=== PATIENT | female | born 1995 | race African-American/Black ===

== ENCOUNTER 2016-12-10 14:10 | Emergency (ER) | payer OTHER ==
[2016-12-10 14:23] VITALS: BP 111/58; PULSE 117; TEMP 98.4; BMI 16.8
--- NOTE | 2016-12-10 16:03 | PDOC ---
History of Present Illness - General Chief Complaint: Lightheaded Stated Complaint: WEAKNESS,PAIN Time Seen by Provider: 12/10/16 14:25 History Source: Patient Exam Limitations: No Limitations - History of Present Illness Initial Comments: 12/10/16 15:53 Patient is a 20F with no significant medical history here today complaining of weakness and urinary frequency for the past 3-4 days. She also is complaining of mid-abdominal tightness related to an occasionally protruding hernia that she has a video of. On the video, the hernia expands, then easily reduces. She is also complaining of intermittent atypical chest pain. Her LMP was one month ago, with some spotting two weeks ago. She endorses some episodes of nausea, but denies fevers, chills, and vomiting. She denies lower abdominal and pelvic pain. She states that she hasn't lost weight recently. Past History - Past Medical History Allergies/Adverse Reactions: Allergies Allergy/AdvReac Type Severity Reaction Status Date / Time No Known Allergies Allergy Verified 12/10/16 14:19 Home Medications: Ambulatory Orders Cephalexin [Keflex] 500 mg PO BID #5 capsule 12/10/16 Anemia: Yes Asthma: No Cancer: No Cardiac Disorders: No Diabetes: No HTN: No Seizures: No Thyroid Disease: No Other medical history: DENIES. - Immunization History Immunization Up to Date: Yes - Psycho/Social/Smoking Cessation Hx Anxiety: No Suicidal Ideation: No Smoking Status: No Smoking History: Never smoked Have you smoked in the past 12 months: No Number of Cigarettes Smoked Daily: 0 Hx Alcohol Use: No Drug/Substance Use Hx: No Substance Use Type: None Hx Substance Use Treatment: No Review of Systems - Review of Systems Comments:: 12/10/16 16:18 GENERAL/CONSTITUTIONAL: No fever or chills. Positive for weakness HEAD, EYES, EARS, NOSE AND THROAT: No change in vision. No sore throat. CARDIOVASCULAR: Positive for chest pain and shortness of breath RESPIRATORY: No cough, wheezing, or hemoptysis. GASTROINTESTINAL: Positive for nausea. Negative for vomiting, diarrhea or constipation. GENITOURINARY: No dysuria. Positive for increased frequency SKIN: No rash NEUROLOGIC: No headache, loss of consciousness, or change in strength/sensation. ENDOCRINE: No abnormal weight change ALLERGIC/IMMUNOLOGIC: No hives or skin allergy. *Physical Exam - Vital Signs Last Vital Signs Temp Pulse Resp BP Pulse Ox 98.4 F 117 H 18 111/58 100 12/10/16 14:19 12/10/16 14:19 12/10/16 14:19 12/10/16 14:19 12/10/16 14:19 - Physical Exam Comments: 12/10/16 16:21 GENERAL: Awake, alert, and fully oriented, in no acute distress, underweight HEAD: No signs of trauma, normocephalic, atraumatic EYES: PERRLA, EOMI, sclera anicteric, conjunctiva clear, pale conjunctiva ENT: Auricles normal inspection, hearing grossly normal, nares patent, Moist mucosa NECK: Normal ROM, supple, no lymphadenopathy, JVD, or masses LUNGS: No distress, speaks full sentences, clear to auscultation bilaterally HEART: Regular rate and rhythm, normal S1 and S2, no murmurs, rubs or gallops, peripheral pulses normal and equal bilaterally. ABDOMEN: Soft, nontender, normoactive bowel sounds. No guarding, no rebound. 1x1cm periumbilical hernia, reducible, nontender EXTREMITIES: Normal inspection, Normal range of motion, no edema. No clubbing or cyanosis. NEUROLOGICAL: Cranial nerves II through XII grossly intact. Normal speech, no focal sensorimotor deficits SKIN: Warm, Dry, normal turgor, no rashes or lesions noted. ED Treatment Course - LABORATORY CBC & Chemistry Diagram: 12/10/16 15:53 12/10/16 15:53 Medical Decision Making - Medical Decision Making 12/10/16 16:22 20F with no significant medical history here today complaining of weakness for the past several days. Tachycardic, vital signs otherwise stable. Patient is underweight, bmi 16.8. Differential diagnosis includes, but is not limited to: , anemia, electrolyte abnormality, hyperthyroidism, anorexia. Will evaluate with upreg, ua, cbc, cmp, ekg, tsh. 12/10/16 17:23 CBC shows microcytic anemia. UA shows UTI. CMP unremarkable. Upreg neg. TSH pending. 12/10/16 17:59 HR 75, lab findings discussed. Given first dose of antibiotic, prescription sent to pharmacy. EKG, tsh pending. 12/10/16 18:19 TSH normal. 12/10/16 18:30 EKG normal sinus rhythm, normal rate, normal axis. No st elevations or t wave inversions. *DC/Admit/Observation/Transfer Diagnosis at time of Disposition: Urinary tract infection - Discharge Dispostion Disposition: HOME Condition at time of disposition: Good Admit: No - Prescriptions Prescriptions: Cephalexin [Keflex] 500 mg PO BID #5 capsule - Referrals Referrals: Sinan Luong MD [Primary Care Provider] - - Patient Instructions Printed Discharge Instructions: DI for Urinary Tract Infection (UTI)
--- NOTE | 2016-12-10 16:08 | PDOC ---
Attending Attestation - HPI HPI: 12/10/16 17:13 The patient is a 20 year old female with no significant past medical history who presents to the ED for 3-4 days of lightheadedness and generalized weakness. Patient reports for the past 3-4 days she has not been feeling well. She reports frequency and is going to the bathroom more than often despite not drinking a lot of fluids. States she wakes about about 3-4x during the night to use the urinate. Denies hematuria. Denies any weight loss. Denies family medical history. Her LMP was November 17. The patient denies fever, chills, cough, SOB, chest pain, and palpitations. The patient denies abdominal pain, nausea, vomiting, and diarrhea. PCP: Dr. Sinan Luong - Physicial Exam PE: 12/10/16 17:13 GENERAL: Awake, alert, and fully oriented, in no acute distress HEAD: No signs of trauma EYES: PERRLA, EOMI, sclera anicteric, conjunctiva mildly pallor ENT: Auricles normal inspection, hearing grossly normal, nares patent, oropharynx clear without exudates. Moist mucosa NECK: Normal ROM, supple, no lymphadenopathy, JVD, or masses LUNGS: Breath sounds equal, clear to auscultation bilaterally. No wheezes, and no crackles HEART: Tachycardia. Regular rhythm, normal S1 and S2, no murmurs, rubs or gallops ABDOMEN: Soft, nontender, normoactive bowel sounds. No guarding, no rebound. Small umbilical reducible hernia. EXTREMITIES: Normal range of motion, no edema. No clubbing or cyanosis. No cords, erythema, or tenderness NEUROLOGICAL: Cranial nerves II through XII grossly intact. Normal speech, normal gait SKIN: Warm, Dry, normal capillary refill, normal turgor, no rashes or lesions noted. - Medical Decision Making 12/10/16 17:13 Documentation prepared by Tasha Hedrick, acting as medical billing coordinator for Dianna Cleaning DO, MD/. <Tasha Hedrick - Last Filed: 12/10/16 17:40> - Resident Resident Name: Marko Amrbose - ED Attending Attestation I have performed the following: I have examined & evaluated the patient, The case was reviewed & discussed with the resident, I agree w/resident's findings & plan, Exceptions are as noted - Medical Decision Making 12/10/16 16:08 I, Dr. Dianna Cleaning, DO, attest that this document has been prepared under my direction and personally reviewed by me in its entirety. I further attest, that it accurately reflects all work, treatment, procedures and medical decision -making performed by me. <Dianna Cleaning - Last Filed: 12/10/16 18:40> Heart Score/ECG Review - ECG Intrepretation Comment:: 12/10/16 18:40 sinus at 75, nl axis, nl interval, no acute st/t wave findings <Dianna Cleaning - Last Filed: 12/10/16 18:40>
[2016-12-10 16:21] LABS: BASOPHIL 0.6 % (0-2.0); EOSINOPHIL 0.4 % (0-4.5); MCH 21.5 pg (25.7-33.7); MCHC 30.8 g/dl (32.0-36.0); MEAN CELL VOLUME 69.8 fl (80-96); MEAN PLT VOLUME 8.4 fl (7.5-11.1); NEUTROPHILS 72.4 % (42.8-82.8); PLATELET COUNT 376 K/MM3 (134-434); RDW 18.9 % (11.6-15.6); WHITE BLOOD COUNT 6.5 K/mm3 (4.0-10.0)
[2016-12-10 16:24] LABS: URINE APPEARANCE SLCLOUDY; URINE BILIRUBIN NEGATIVE (NEGATIVE); URINE BLOOD NEGATIVE (NEGATIVE); URINE COLOR LTYELLOW; URINE GLUCOSE (UA) NEGATIVE (NEGATIVE); URINE KETONE NEGATIVE (NEGATIVE); URINE NITRITE NEGATIVE (NEGATIVE); URINE PROTEIN NEGATIVE (NEGATIVE)
[2016-12-10 16:25] LABS: URINE LEUK ESTERASE 3+ (NEGATIVE)
[2016-12-10 16:48] LABS: URINE BACTERIA RARE /hpf (NONE SEEN); URINE MUCUS RARE; URINE RBC 2 /hpf (0-3); URINE WBC 9 /hpf (3-5)
[2016-12-10 16:51] LABS: ALBUMIN 3.8 g/dl (3.4-5.0); ANION GAP 7 (8-16); CALCIUM 8.6 mg/dL (8.5-10.1); CO2 27 mmol/L (21-32); CREATININE 0.6 mg/dL (0.55-1.02); GLUCOSE,RANDOM 86 mg/dL (74-106); SGOT/AST 9 U/L (15-37); SGPT/ALT 14 U/L (12-78)
[2016-12-10 16:53] LABS: ALK PHOS 56 U/L (45-117); BILIRUBIN,TOTAL 0.3 mg/dL (0.2-1.0); TOT PROT 7.3 g/dl (6.4-8.2)
[2016-12-10] MEDS ORDERED: SODIUM CHLORIDE 0.9% 1000 ML INFUS.BAG IV ONE (17:08)
[2016-12-10] MEDS ORDERED: CEPHALEXIN MONOHYDRATE 500 MG CAPSULE (UD) PO ONE (17:23)
[2016-12-10] MEDS ORDERED: CEPHALEXIN MONOHYDRATE 250 MG CAPSULE (FP) ONE (17:30)
[2016-12-10 18:14] LABS: HYPOCHROMIA 2+; MACROCYTOSIS RARE; MICROCYTOSIS 1+; OVALOCYTE 1+; PLATELET ESTIMATE ADEQUATE (NORMAL); POIKILOCYTOSIS 1+
--- NOTE | 2016-12-11 12:26 | EKG ---
Test Reason : Blood Pressure : / mmHG Vent. Rate : 075 BPM Atrial Rate : 075 BPM P-R Int : 144 ms QRS Dur : 070 ms QT Int : 368 ms P-R-T Axes : 075 079 066 degrees QTc Int : 410 ms POOR DATA QUALITY, INTERPRETATION MAY BE ADVERSELY AFFECTED NORMAL SINUS RHYTHM NORMAL ECG WHEN COMPARED WITH ECG OF 07-SEP-2013 11:52, NO SIGNIFICANT CHANGE WAS FOUND Confirmed by JAYCEE GOULD, DAVIN ([id number]) on 12/11/2016 12:25:39 PM Referred By: Confirmed By:DAVIN CHAMPION MD
== END 2016-12-10 19:09 | disposition home or self-care (01) ==
LOC: JER 14:10 → SUPCPDRO 14:10 → JER 19:09
DX: N39.0 Urinary tract infection, site not specified (principal)
CPT/HCPCS: 36415; 80053; 81003; 81015; 84443; 84703; 85025; 93005; 93010; 99285-25

== ENCOUNTER 2018-03-06 01:25 | Inpatient (IN) | payer OTHER ==
[2018-03-06] MEDS: DEXTROSE 5%-LACTATED RINGERS 1,000 ML IV SCH (02:00)
[2018-03-06] MEDS ORDERED: PROMETHAZINE HCL 25 MG/1 ML VIAL IVPUSH ONE (02:13)
[2018-03-06] MEDS ORDERED: BUTORPHANOL TARTRATE 1 MG/ML VIAL IVPB ONE (02:13)
[2018-03-06] MEDS ORDERED: PROMETHAZINE HCL 25 MG/1 ML VIAL ONE (02:16)
[2018-03-06] MEDS ORDERED: BUTORPHANOL TARTRATE 1 MG/ML VIAL ONE ×2 (02:16→02:31)
--- NOTE | 2018-03-06 02:20 | HP ---
Past Medical History - Admission Chief Complaint: Labor pain History of Present Illness: 22 yo @ 38 weeks gestation, presents c/o labor pain. She denies any vaginal bleeding nor ROM. She's a Patient of [facility]. History Source: Patient Limitations to Obtaining History: No Limitations - Past Medical History ...: 5 ...Para: 2 ...EDC by [facility]: 03/15/18 - Past Surgical History Past Surgical History: Yes: None Hx Myomectomy: No Hx Transabdominal Cerclage: No - Smoking History Smoking history: Never smoked Have you smoked in the past 12 months: No Aproximately how many cigarettes per day: 0 - Alcohol/Substance Use Hx Alcohol Use: No - Social History Usual Living Arrangement: Yes: With Parent History of Recent Travel: No Home Medications - Allergies Allergies/Adverse Reactions: Allergies Allergy/AdvReac Type Severity Reaction Status Date / Time No Known Allergies Allergy Verified 12/10/16 14:19 - Home Medications Home Medications: Ambulatory Orders Cephalexin [Keflex] 500 mg PO BID #5 capsule 12/10/16 Family Disease History - Family Disease History Family History: Unremarkable Review of Systems - Review of Systems Constitutional: reports: No Symptoms Eyes: reports: No Symptoms HENT: reports: No Symptoms Neck: reports: No Symptoms Cardiovascular: reports: No Symptoms Respiratory: reports: No Symptoms Gastrointestinal: reports: No Symptoms Genitourinary: reports: Pain Breasts: reports: No Symptoms Reported Neurological: reports: No Symptoms Endocrine: reports: No Symptoms Hematology/Lymphatic: reports: No Symptoms Psychiatric: reports: No Symptoms Pain Intensity: 7 Physical Exam - Maternity Constitutional: Yes: Well Nourished Eyes: Yes: Conjunctiva Clear HENT: Yes: Atraumatic Neck: Yes: Supple Cardiovascular: Yes: Regular Rate and Rhythm Lungs: Clear to auscultation - Abdominal Exam/OB Number of Fetuses: Single Presentation: Vertex - Vaginal Exam/OB Vaginal Bleediing: No Dilatation (cm): 5 Effacement (%): 100 Presentation: Vertex/Position Station: -2 - Physical Exam ...Motor Strength: WNL Psychiatric: Yes: Alert, Oriented Problem List - Problems (1) Active labor at term Code(s): [id number] - Assessment/Plan Active labor Admit to L&D Analgesia as needed Anticipate
[2018-03-06 02:22] LABS: BASO % 0.2 % (0-2.0); EOS % 0.1 % (0-4.5); HEMATOCRIT 29.3 % (32.4-45.2); HEMOGLOBIN 9.5 GM/dL (10.7-15.3); LYMPH % 18.8 % (8-40); MCH 21.9 pg (25.7-33.7); MCHC 32.3 g/dl (32.0-36.0); MEAN CELL VOLUME 67.8 fl (80-96); MEAN PLT VOLUME 9.3 fl (7.5-11.1); MONO % 5.5 % (3.8-10.2); NEUT % 75.4 % (42.8-82.8); PLATELET COUNT 271 K/MM3 (134-434); RBC 4.33 M/mm3 (3.60-5.2); RDW 19.3 % (11.6-15.6); WHITE BLOOD COUNT 9.8 K/mm3 (4.0-10.0)
[2018-03-06 02:37] LABS: INR 0.92 (0.83-1.09); PROTHROMBIN TIME (PATIENT) 10.9 SEC (9.7-13.0)
[2018-03-06 02:39] LABS: ACTIVATED PTT 28.6 SECONDS (25.2-36.5)
[2018-03-06 02:43] LABS: ANION GAP 8 MMOL/L (8-16); BLOOD UREA NITROGEN 4 mg/dL (7-18); CALCIUM 7.9 mg/dL (8.5-10.1); CHLORIDE 105 mmol/L (98-107); CO2 24 mmol/L (21-32); CREATININE 0.5 mg/dL (0.55-1.3); GLUCOSE,RANDOM 72 mg/dL (74-106); SODIUM 137 mmol/L (136-145)
[2018-03-06] MEDS ORDERED: OXYTOCIN 20 UNITS in 0.9% NS 20 UNIT/1,000 ML INFUS.BAG IV ONE ×2 (03:01→04:17)
[2018-03-06] MEDS: OXYTOCIN 20 UNITS in 0.9% NS 20 UNIT/1,000 ML INFUS.BAG IV SCH (03:10)
[2018-03-06] MEDS ORDERED: WITCH HAZEL 50% (TUCKS) 40 PAD/JAR PAD TP PRN (03:16)
[2018-03-06] MEDS ORDERED: BENZOCAINE 28 GM HEMORRHOIDAL OINTMENT TP PRN (03:16)
[2018-03-06] MEDS ORDERED: METHYLERGONOVINE MALEATE 0.2 MG/1 ML AMP IM PRN (03:16)
[2018-03-06] MEDS ORDERED: BENZOCAINE 20% 57 GM BOTTLE TP PRN (03:16)
[2018-03-06] MEDS ORDERED: BISACODYL 10 MG SUPP.RECT RC PRN (03:16)
--- NOTE | 2018-03-06 03:19 | PN ---
Delivery - Delivery Vaginal Delivery: Spontaneous Episiotomy/Laceration: 1st degree EBL (cc): 300 Remarks - Remarks Remarks: Normal spontaneous vaginal delivery of a live infant boy over first degree laceration. Nose / Oropharynx suctioned @ perineum. Cord clamped and cut. Placenta expelled spontaneously intact. Baby handed to nurse. Laceration repaired with 2.0 Chromic.
[2018-03-06 03:45] VITALS: BMI 20.7
[2018-03-06 05:21] LABS: ANISOCYTOSIS 1+; PLATELET ESTIMATE ADEQUATE
[2018-03-06] MEDS: IBUPROFEN 600 MG TABLET (FP) PO PRN ×3 (06:38→19:54)
[2018-03-06] MEDS: ACETAMINOPHEN 325 MG TABLET (FP) PO PRN ×3 (06:40→19:54)
[2018-03-06] MEDS ORDERED: IBUPROFEN 600 MG TABLET (FP) PO ONE ×2 (06:42→10:32)
[2018-03-06] MEDS ORDERED: ACETAMINOPHEN 325 MG TABLET (FP) ONE ×2 (06:42→10:32)
[2018-03-06] MEDS: FERROUS SO4 325 MG TABLET (FP) PO SCH ×2 (09:59→21:38)
[2018-03-06] MEDS: PRENATAL VITAMINS W/ FOLIC ACID TABLET (FP) PO SCH (09:59)
[2018-03-06] MEDS ORDERED: TUBERCULIN PPD 5 TU/0.1ML SYRINGE (IN PATIENT USE ONLY) ID ONE (10:00)
[2018-03-07] MEDS: ACETAMINOPHEN 325 MG TABLET (FP) PO PRN ×3 (01:24→18:00)
[2018-03-07] MEDS: IBUPROFEN 600 MG TABLET (FP) PO PRN ×3 (01:24→17:59)
[2018-03-07] MEDS: DEXTROSE 5%-LACTATED RINGERS 1,000 ML IV SCH (05:04)
[2018-03-07] MEDS: OXYTOCIN 20 UNITS in 0.9% NS 20 UNIT/1,000 ML INFUS.BAG IV SCH (05:04)
[2018-03-07 08:31] LABS: BASO % 0.2 % (0-2.0); HEMATOCRIT 24.5 % (32.4-45.2); HEMOGLOBIN 7.5 GM/dL (10.7-15.3); MCH 21.1 pg (25.7-33.7); MCHC 30.5 g/dl (32.0-36.0); MEAN CELL VOLUME 69.3 fl (80-96); MEAN PLT VOLUME 9.6 fl (7.5-11.1); MONO % 5.7 % (3.8-10.2); NEUT % 73.1 % (42.8-82.8); PLATELET COUNT 231 K/MM3 (134-434); RBC 3.54 M/mm3 (3.60-5.2); RDW 19.4 % (11.6-15.6); WHITE BLOOD COUNT 10.6 K/mm3 (4.0-10.0)
[2018-03-07] MEDS: PRENATAL VITAMINS W/ FOLIC ACID TABLET (FP) PO SCH (09:53)
[2018-03-07] MEDS: FERROUS SO4 325 MG TABLET (FP) PO SCH ×2 (09:53→21:14)
--- NOTE | 2018-03-07 14:08 | PN ---
Post Progress Note - Subjective Subjective: 22 yo Para 3 status post , seen and evaluated. Doing well. Post Day: 1 Type of Delivery: Vital Signs: Vital Signs Temperature 98.6 F 03/07/18 09:53 Pulse Rate 87 03/07/18 09:53 Respiratory Rate 20 03/07/18 09:53 Blood Pressure 110/65 03/07/18 09:53 O2 Sat by Pulse Oximetry (%) 100 03/06/18 15:27 Breast Exam: Yes: Soft Uterus: Yes: Fundus Firm Abdomen/GI: Yes: Abdomen soft, Tolerating PO Lochia: Yes: Rubra Lochia, amount: Moderate Extremities: Yes: Calves non-tender Perineum: Yes: Intact Activity: Ambulating - Labs Labs: CBC WBC 10.6 K/mm3 (4.0-10.0) H 03/07/18 07:30 RBC 3.54 M/mm3 (3.60-5.2) L 03/07/18 07:30 Hgb 7.5 GM/dL (10.7-15.3) L 03/07/18 07:30 Hct 24.5 % (32.4-45.2) L D 03/07/18 07:30 MCV 69.3 fl (80-96) L 03/07/18 07:30 MCH 21.1 pg (25.7-33.7) L 03/07/18 07:30 MCHC 30.5 g/dl (32.0-36.0) L 03/07/18 07:30 RDW 19.4 % (11.6-15.6) H 03/07/18 07:30 Plt Count 231 K/MM3 (134-434) 03/07/18 07:30 MPV 9.6 fl (7.5-11.1) 03/07/18 07:30 Absolute Neuts (auto) 7.7 K/mm3 (1.5-8.0) 03/07/18 07:30 Neutrophils % 73.1 % (42.8-82.8) 03/07/18 07:30 Lymphocytes % 20.0 % (8-40) 03/07/18 07:30 Monocytes % 5.7 % (3.8-10.2) 03/07/18 07:30 Eosinophils % 1.0 % (0-4.5) D 03/07/18 07:30 Basophils % 0.2 % (0-2.0) 03/07/18 07:30 Nucleated RBC % 0 % (0-0) 03/07/18 07:30 Hypochromia 2+ 03/06/18 01:20 Platelet Estimate Adequate 03/06/18 01:20 Platelet Comment Large platelets 03/06/18 01:20 Polychromasia 1+ 03/06/18 01:20 Anisocytosis 1+ 03/06/18 01:20 Microcytosis 2+ 03/06/18 01:20 Problem List - Problems (1) Active labor at term Code(s): [id number] - (2) Status post normal vaginal delivery Code(s): ART6086 - Assessment/Plan Status post vaginal delivery Stable Continue routine care
[2018-03-07] MEDS ORDERED: SENNOSIDES/DOCUSATE COMBO (SENNA PLUS) TABLET (UD) PO PRN (22:00)
[2018-03-08] MEDS: IBUPROFEN 600 MG TABLET (FP) PO PRN (03:24)
[2018-03-08] MEDS: ACETAMINOPHEN 325 MG TABLET (FP) PO PRN (03:25)
[2018-03-08 08:45] VITALS: BP 113/70; PULSE 87; TEMP 98.6
[2018-03-08] MEDS: PRENATAL VITAMINS W/ FOLIC ACID TABLET (FP) PO SCH (10:29)
[2018-03-08] MEDS: FERROUS SO4 325 MG TABLET (FP) PO SCH (10:29)
--- NOTE | 2018-03-08 10:30 | DS ---
Physical Exam-GIFT CONSULTANT Vital Signs: Vital Signs Temperature 98.6 F 03/08/18 08:41 Pulse Rate 87 03/08/18 08:41 Respiratory Rate 20 03/08/18 08:41 Blood Pressure 113/70 03/08/18 08:41 O2 Sat by Pulse Oximetry (%) 100 03/06/18 15:27 Constitutional: Yes: Well Nourished, No Distress Neck: Yes: WNL Cardiovascular: Yes: WNL Respiratory: Yes: WNL, Regular, CTA Bilaterally Gastrointestinal: Yes: WNL, Normal Bowel Sounds, Soft ....Post : Yes: Uterus firm, Uterus non-tender Breast(s): Yes: WNL Musculoskeletal: Yes: WNL Extremities: Yes: WNL Edema: No Labs: CBC, BMP 03/07/18 07:30 03/06/18 01:20 Delivery - Delivery Vaginal Delivery: Spontaneous Type of Anesthesia: None Episiotomy/Laceration: 1st degree EBL (cc): 300 Delivery, Single - Stages of Labor Date 1st Stage Initiatied: 03/05/18 Time 1st Stage Initiated: 23:00 Date 2nd Stage Initiated: 03/06/18 Time 2nd Stage Initiated: 02:00 Date of Delivery: 03/06/18 Time of Delivery: 03:04 Time Placenta Delivered: 03:10 Placenta: Yes: Spontaneous - Condition of Infant Arborer/Photography Manager Present: No Gender: Male Weight: 5 lb 6 oz Position: Left, OA Total Hours ROM (Hrs/Mins): 1HOUR/4 MINUTES - 1 Minute Total Score: 9 - [place] Feeding Plan Initial Plan: Elected not to breastfeed exclusively throughout hospitalization Discharge Summary Reason For Visit: LABOR Current Active Problems Active labor at term (Acute) Status post normal vaginal delivery (Acute) Procedures: Principal: Normal vaginal delivery Condition: Good - Instructions Diet, Activity, Other Instructions: Physical activity Resume your normal everyday activity as tolerated no heavy lifting or exercise until seen by your surgeon. You may walk unlimited el of and climb stairs. You may resume driving the car when you feel safe and comfortable behind the wheel. No sexual activity as instructed. Wound care If you have a bandage, leave it on, and keep dry for 48-72 hours. After that time discard the outer bandage. If they are tapes on the skin under the out of bandage leave them in place. They will peel off in the next 7 to 10 days. Do Not Peel them off. You may shower the day after surgery. If there are tapes present on the skin, you may shower over them. Diet There are no dietary restrictions. Eat healthy, high-fiber foods. Drink 6 to 8 glasses of liquid each day. This will assist in keeping your bowels are regular. Pain management You may take Tylenol or acetaminophen or Ibuprofen (for example, Motrin, Advil etc.) from my pain prescription medication is ordered should be taken as prescribed for moderate to severe pain. Call MD for any of the following: Severe pain not relieved by medication Fever of 101 or higher Excessive bleeding or drainage on dressing Inability to urinate Disposition: HOME - Home Medications Comprehensive Discharge Medication List: Ambulatory Orders Ibuprofen [Motrin -] 600 mg PO QID #28 tablet 03/08/18
== END 2018-03-08 14:00 | disposition home or self-care (01) | DRG 807 ==
LOC: JLDR 01:25 → J3W 14:52
PROVIDERS: ADMIT Obstetrics & Gynecology; ATTEND Obstetrics & Gynecology
PROC: 10E0XZZ Delivery of Products of Conception, External Approach (ICD-10-PCS; principal; 2018-03-06)
PROC: 0W8NXZZ Division of Female Perineum, External Approach (ICD-10-PCS; 2018-03-06)
DX: O70.0 First degree perineal laceration during delivery (principal); Z37.0 Single live birth; Z3A.38 38 weeks gestation of pregnancy
CPT/HCPCS: 36415; 59409; 80048; 85025; 85610; 85730; 86593; 86850; 86900; 86901

== ENCOUNTER 2018-09-29 17:30 | Emergency (ER) | payer OTHER ==
--- NOTE | 2018-09-29 17:43 | PDOC ---
Rapid Medical Evaluation Time Seen by Provider: 09/29/18 17:41 Medical Evaluation: Allergies Allergy/AdvReac Type Severity Reaction Status Date / Time No Known Allergies Allergy Verified 12/10/16 14:19 09/29/18 17:41 HPI: painful area on face PE: ambulates, no gross deficits; boil on right jaw line ORDERS: nothing Discharge Disposition - Diagnosis Abscess - Referrals - Patient Instructions - Post Discharge Activity
[2018-09-29 17:45] VITALS: BP 100/60; PULSE 92; TEMP 98.2; BMI 17.7
--- NOTE | 2018-09-29 19:26 | PDOC ---
History of Present Illness - General Chief Complaint: Abscess Boil Stated Complaint: ABSESS Time Seen by Provider: 09/29/18 17:41 History Source: Patient Exam Limitations: Clinical Condition - History of Present Illness Initial Comments: 09/29/18 19:28 Patient with no significant past medical history present with complaint of abscess to right side of chin. Report she popped abscess multiple times and it refills. Patient has not seen anybody about abscess. Denies fever, chills or redness to area. Denies any other symptoms Timing/Duration: reports: other (3 months) Past History - Past Medical History Allergies/Adverse Reactions: Allergies Allergy/AdvReac Type Severity Reaction Status Date / Time No Known Allergies Allergy Verified 09/29/18 17:43 Home Medications: Ambulatory Orders Ibuprofen [Motrin -] 600 mg PO QID #28 tablet 03/08/18 Clindamycin [Cleocin -] 300 mg PO BID 7 Days #14 capsule 09/29/18 Mupirocin Ointment [Bactroban 2% Ointment -] 1 applic TP BID #1 tube 09/29/18 Anemia: Yes Asthma: No Cancer: No Cardiac Disorders: No Diabetes: No HTN: No Seizures: No Thyroid Disease: No - Immunization History Immunization Up to Date: Yes - Suicide/Smoking/Psychosocial Hx Smoking Status: No Smoking History: Never smoked Have you smoked in the past 12 months: No Number of Cigarettes Smoked Daily: 0 Information on smoking cessation initiated: No Hx Alcohol Use: No Drug/Substance Use Hx: No Substance Use Type: None Hx Substance Use Treatment: No Review of Systems - Review of Systems Able to Perform ROS?: Yes Is the patient limited [place] proficient: No Constitutional: No: Fever, Weakness HEENTM: Yes: Symptoms Reported, See HPI, Other (abscess to right side of chin). No: Eye Pain, Blurred Vision, Tearing, Recent change in vision, Double Vision , Cataracts, Ear Pain, Ocular Prothesis, Ear Discharge, Nose Pain, Nose Congestion, Tinnitus, Nose Bleeding, Hearing Loss, Throat Pain, Throat Swelling , Mouth Pain, Dental Problems, Difficulty Swallowing, Mouth Swelling Respiratory: No: Symptoms reported Cardiac (ROS): No: Symptoms Reported ABD/GI: No: Nausea, Vomiting Musculoskeletal: Yes: Symptoms Reported, See HPI, Muscle Pain (right chin) Integumentary: Yes: Symptoms Reported, See HPI, Lumps (right side of chin). No : Erythema All Other Systems: Reviewed and Negative *Physical Exam - Vital Signs Last Vital Signs Temp Pulse Resp BP Pulse Ox 98.2 F 92 H 17 100/60 100 09/29/18 17:43 09/29/18 17:43 09/29/18 17:43 09/29/18 17:43 09/29/18 17:43 - Physical Exam Comments: 09/29/18 19:37 GENERAL: Well developed, well nourished. Awake and alert. No acute distress. HEENT: Normocephalic, atraumatic. PERRLA, EOMI. No conjunctival pallor. Sclera are non-icteric. Moist mucous membranes. Oropharynx is clear. NECK: Supple. Full ROM. CARDIOVASCULAR: Regular rate and rhythm. No murmurs, rubs, or gallops. Distal pulses are 2+ and symmetric. PULMONARY: No evidence of respiratory distress. MUSCULOSKELETAL Normal range of motion at all joints. SKIN: Warm and dry. Normal capillary refill. 2 cm area of hard induration with 1 cm fluctuant in the middle of induration. No skin erythema. No drainage from site. NEUROLOGICAL: Alert, awake, appropriate. Gait is normal without ataxia. PSYCHIATRIC: Cooperative. Good eye contact. Appropriate mood General Appearance: Yes: Nourished, Appropriately Dressed. No: Apparent Distress Medical Decision Making - Medical Decision Making 09/29/18 19:34 Patient with no significant past medical history present with complaint of abscess to right side of chin. Report she popped abscess multiple times and it refills. Patient has not seen anybody about abscess. Denies fever, chills or redness to area. Denies any other symptoms Exam significant for 2 cm hard induration with 1 cm area of fluctuating to right it of mandible. No erythema to skin Abscess not ready for I&D area Patient with discharge home on clindamycin by mouth antibiotics and topical Bactroban with advised to do hot compresses to abscess with dermatology follow- up *DC/Admit/Observation/Transfer Diagnosis at time of Disposition: Abscess - Discharge Dispostion Disposition: HOME Condition at time of disposition: Stable Decision to Admit order: No - Prescriptions Prescriptions: Clindamycin [Cleocin -] 300 mg PO BID 7 Days #14 capsule Mupirocin Ointment [Bactroban 2% Ointment -] 1 applic TP BID #1 tube - Referrals Referrals: Sinan Luong MD [Primary Care Provider] - Kisha Marie MD [Staff Physician] - - Patient Instructions Printed Discharge Instructions: DI for Skin Abscess Additional Instructions: Take medications as prescribed. Apply hot compresses to abscess area 2-3 times a day for 5-10 minutes as needed for swelling. Follow-up with referred dermatology or PCP if no improvement in 4 days or come back for drainage if unable to follow-up with dermatology or PCP - Post Discharge Activity
== END 2018-09-29 19:41 | disposition home or self-care (01) ==
LOC: JERFT 17:30
DX: L02.01 Cutaneous abscess of face (principal)
CPT/HCPCS: 99281-25

== ENCOUNTER 2019-03-29 21:39 | Emergency (ER) | payer OTHER ==
[2019-03-29 21:45] VITALS: BMI 18.1
[2019-03-29] MEDS ORDERED: ACETAMINOPHEN 325 MG TABLET (FP) PO ONE (22:26)
[2019-03-29] MEDS ORDERED: ACETAMINOPHEN 325 MG TABLET (FP) ONE (22:34)
[2019-03-29 22:38] LABS: BASO % 0.2 % (0-2.0); EOS % 0.1 % (0-4.5); HEMATOCRIT 32.9 % (32.4-45.2); HEMOGLOBIN 10.4 GM/dL (10.7-15.3); LYMPH % 3.1 % (8-40); MCH 23.9 pg (25.7-33.7); MCHC 31.6 g/dl (32.0-36.0); MEAN CELL VOLUME 75.6 fl (80-96); MEAN PLT VOLUME 8.7 fl (7.5-11.1); MONO % 7.1 % (3.8-10.2); NEUT % 89.5 % (42.8-82.8); PLATELET COUNT 363 K/MM3 (134-434); RBC 4.35 M/mm3 (3.60-5.2); RDW 18.9 % (11.6-15.6); WHITE BLOOD COUNT 17.3 K/mm3 (4.0-10.0)
[2019-03-29 22:59] LABS: ALBUMIN 3.9 g/dl (3.4-5.0); BILIRUBIN,TOTAL 0.5 mg/dL (0.2-1); BLOOD UREA NITROGEN 7.8 mg/dL (7-18); CALCIUM 8.5 mg/dL (8.5-10.1); CREATININE 0.7 mg/dL (0.55-1.3); POTASSIUM 3.7 mmol/L (3.5-5.1); TOT PROT 7.6 g/dl (6.4-8.2)
[2019-03-29] MEDS ORDERED: CLINDAMYCIN 900 MG PREMIX IVPB 900 MG/50 ML BAG IVPB ONE ×2 (23:11→23:20)
[2019-03-29 23:37] LABS: EPI CELLS 1.7 /HPF (0-5/HPF); HYALINE CASTS 1 /lpf (0-8); PH,URINE 6.5 (5.0-8.0); URINE APPEARANCE CLEAR; URINE BACTERIA 64.2 /hpf (NEGATIVE); URINE BILIRUBIN NEGATIVE (NEGATIVE); URINE COLOR YELLOW; URINE GLUCOSE (UA) NEGATIVE (NEGATIVE); URINE KETONE NEGATIVE (NEGATIVE); URINE LEUK ESTERASE 1+ (NEGATIVE); URINE NITRITE NEGATIVE (NEGATIVE); URINE PROTEIN NEGATIVE (NEGATIVE); URINE RBC 0 /hpf (0-4); URINE WBC 10 /hpf (0-5)
[2019-03-30] MEDS ORDERED: SODIUM CHLORIDE 1,000 ML IV STA (00:11)
--- NOTE | 2019-03-30 00:37 | PDOC ---
Documentation entered by Ekta Corea SCRIBE, acting as scribe for Delisa Zhu MD. Delisa Zhu MD: This documentation has been prepared by the nohemyibe, Ekta Corea SCRIBE, under my direction and personally reviewed by me in its entirety. I confirm that the documentation accurately reflects all work, treatment, procedures, and medical decision making performed by me. 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 Patient states that she has body aches, ?URI, and flu like symptoms. Patient states that she has not taken tylenol or motrin to help with her symptoms. As per patient, 9 months ago she started having recurrent abscess on her face but did not see anyone until 6 months ago (09/29/18 at ED). Patient has never followed up with dermatology since because she was too busy. Patient states it never clears up, and that it comes and goes. Patient adds for the last x2 weeks the left side of her face and the anterior of her tongue feels numb. No nausea, vomiting, or diarrhea. No chest pain or shortness of breath. The patient denies dental pain or problem handling her saliva. Allergies: NKA PCP: Dr. Pankaj Luong Past History - Past Medical History Allergies/Adverse Reactions: Allergies Allergy/AdvReac Type Severity Reaction Status Date / Time No Known Allergies Allergy Verified 09/29/18 17:43 Home Medications: Ambulatory Orders Ibuprofen [Motrin -] 600 mg PO QID #28 tablet 03/08/18 Clindamycin [Cleocin -] 300 mg PO BID 7 Days #14 capsule 09/29/18 Mupirocin Ointment [Bactroban 2% Ointment -] 1 applic TP BID #1 tube 09/29/18 Anemia: Yes Asthma: No Cancer: No Cardiac Disorders: No COPD: No Diabetes: No HTN: No Seizures: No Thyroid Disease: No - Immunization History Immunization Up to Date: Yes - Psycho Social/Smoking Cessation Hx Smoking Status: No Smoking History: Never smoked Have you smoked in the past 12 months: No Number of Cigarettes Smoked Daily: 0 Hx Alcohol Use: No Drug/Substance Use Hx: No Substance Use Type: None Hx Substance Use Treatment: No Review of Systems - Review of Systems Able to Perform ROS?: Yes Comments:: 03/29/19 22:57 CONSTITUTIONAL: +fever, body aches, flu like symptoms Absent: chills, diaphoresis, generalized weakness, malaise, loss of appetite HEENT: Absent: difficulty swallowing, dental pain, throat pain, throat swelling, ear pain, eye pain, visual Changes CARDIOVASCULAR: Absent: chest pain, syncope, palpitations, irregular heart rate, lightheadedness , peripheral edema RESPIRATORY: Absent: cough, shortness of breath, dyspnea with exertion, orthopnea, wheezing, stridor, hemoptysis GASTROINTESTINAL: Absent: No abdominal pain, abdominal distension, nausea, vomiting, diarrhea, constipation, melena, hematochezia GENITOURINARY: Absent: dysuria, frequency, urgency, hesitancy, hematuria, flank pain, genital pain MUSCULOSKELETAL: +myalgia Absent: arthralgia, joint swelling SKIN: +abscess on right side of face Absent: rash, itching, pallor HEMATOLOGIC/IMMUNOLOGIC: +persistent right facial abscess Absent: easy bleeding, easy bruising, lymphadenopathy, ENDOCRINE: Absent: unexplained weight gain, unexplained weight loss, heat intolerance, cold intolerance NEUROLOGIC: Absent: headache, focal weakness or paresthesias, dizziness, unsteady gait, seizure, mental status changes, bladder or bowel incontinence PSYCHIATRIC: Absent: anxiety, depression, suicidal or homicidal ideation, hallucinations. *Physical Exam - Vital Signs Last Vital Signs Temp Pulse Resp BP Pulse Ox 100.8 F H 123 H 19 113/71 98 03/29/19 21:41 03/29/19 21:41 03/29/19 21:41 03/29/19 21:41 03/29/19 21:41 - Physical Exam 03/29/19 22:59 GENERAL: Well developed, well nourished. Awake and alert. No acute distress. HEENT: +jawline 1 cm abcess Normocephalic, atraumatic. PERRLA, EOMI. No conjunctival pallor. Sclera are non- icteric. Moist mucous membranes. Oropharynx is clear. ORAL: +No tongue biting, no erythema, no streaking. No sublingual fullness. No buccal vestibule fullness or swelling, uvula is midline, no kissing tonsils, no exudates. No grossly carious teeth, no submandibular sublingual swelling. NECK: Supple. Full ROM. No JVD. Carotid pulses 2+ and symmetric, without bruits. No thyromegaly. No lymphadenopathy. CARDIOVASCULAR: +Slight tachycardic. Regular rhythm. No murmurs, rubs, or gallops. Distal pulses are 2+ and symmetric. PULMONARY: No evidence of respiratory distress. Lungs clear to auscultation bilaterally. No wheezing, rales or rhonchi. ABDOMINAL: Soft. Non-tender. Non-distended. No rebound or guarding. No organomegaly. Normoactive bowel sounds. MUSCULOSKELETAL Normal range of motion at all joints. No bony deformities or tenderness. No CVA tenderness. EXTREMITIES: No cyanosis. No clubbing. No edema. No calf tenderness. SKIN: Warm and dry. Normal capillary refill. No rashes. No jaundice. NEUROLOGICAL: +No facial droop, no slurred speech, no neuropathies. Alert, awake, appropriate. Cranial nerves 2-12 intact. No deficits to light touch and temperature in face, upper extremities and lower extremities. No motor deficits in the in face, upper extremities and lower extremities. Normoreflexic in the upper and lower extremities. Normal speech. Toes are down- going bilaterally. Gait is normal without ataxia. PSYCHIATRIC: Cooperative. Good eye contact. Appropriate mood and affect. ED Treatment Course - LABORATORY CBC & Chemistry Diagram: 03/29/19 22:28 03/29/19 22:28 - ADDITIONAL ORDERS Additional order review: Laboratory Results 03/29/19 03/29/19 03/29/19 23:26 22:30 22:28 Sodium 139 Potassium 3.7 Chloride 109 H Carbon Dioxide 22 Anion Gap 8 BUN 7.8 Creatinine 0.7 Est GFR (CKD-EPI)AfAm 139.57 Est GFR (CKD-EPI)NonAf 120.42 Random Glucose 90 Calcium 8.5 Total Bilirubin 0.5 AST 14 L ALT 14 Alkaline Phosphatase 65 Total Protein 7.6 Albumin 3.9 Serum , Qual Negative Urine Color Yellow Urine Appearance Clear Urine pH 6.5 Ur Specific Barnard 1.005 L Urine Protein Negative Urine Glucose (UA) Negative Urine Ketones Negative Urine Blood Negative Urine Nitrite Negative Urine Bilirubin Negative Urine Urobilinogen 1.0 Ur Leukocyte Esterase 1+ H Urine WBC (Auto) 10 Urine RBC (Auto) 0 Urine Casts (Auto) 1 U Epithel Cells (Auto) 1.7 Urine Bacteria (Auto) 64.2 03/29/19 22:28 RBC 4.35 MCV 75.6 L MCHC 31.6 L RDW 18.9 H MPV 8.7 Neutrophils % 89.5 H D Lymphocytes % 3.1 L D Monocytes % 7.1 Eosinophils % 0.1 D Basophils % 0.2 - RADIOLOGY Radiology Studies Ordered: Category Date Time Status HEAD CT WITHOUT CONTRAST [CT] Stat CT Scan 03/29/19 23:35 Taken - Medications Given in the ED: ED Medications Discontinued Medications Generic Name Dose Route Start Last Admin Trade Name Freq PRN Reason Stop Dose Admin Acetaminophen 650 mg 03/29/19 22:26 03/29/19 22:36 Tylenol - PO 03/29/19 22:27 650 mg ONCE ONE Administration Medical Decision Making - Medical Decision Making 03/30/19 00:33 23-year-old female presents with an intermittent chronic abscess to the right side of her jaw she noticed it in June and first came to the ER and September 29 of this year and was placed on antibiotics and did not follow-up with the standard machine stitcher or her primary care provider She comes in because she feels febrile now and has body aches and is aware that she again has swelling on the bridge of her jaw on the right side of her face. 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 and according to the family this tooth may have been endodontically treated in the past Impression she could have a dental abscess at the periapical roots pf her rt mandibular molar with a fistula that extends out to her face Patient will be placed on clindamycin and she will be referred to both the standard machine stitcher and the dentist It was emphasized that is very important for her to follow-up since she has had this recurrent abscess for at least [address] is negative Discharge - Discharge Information Problems reviewed: Yes Clinical Impression/Diagnosis: Abscess Fever Qualifiers: Fever type: due to other condition Qualified Code(s): R50.81 - Fever presenting with conditions classified elsewhere Condition: Stable Disposition: HOME - Admission No - Follow up/Referral Referrals: Pankaj Luong MD [Primary Care Provider] - Kisha Marie MD [Staff Physician] - - Patient Discharge Instructions Patient Printed Discharge Instructions: DI for Skin Abscess Additional Instructions: It is very important to case picker your antibiotics at your pharmacy and take the medication as prescribed Please make an appointment with the dentist and the standard machine stitcher for further evaluation Return for any worsening symptoms - Post Discharge Activity
[2019-03-30 01:35] VITALS: BP 108/79; PULSE 70; TEMP 98.1
== END 2019-03-30 01:13 | disposition home or self-care (01) ==
LOC: JER 21:39
PROC: 3E0337Z Introduction of Electrolytic and Water Balance Substance into Peripheral Vein, Percutaneous Approach (ICD-10-PCS; principal; 2019-03-29)
PROC: 3E03329 Introduction of Other Anti-infective into Peripheral Vein, Percutaneous Approach (ICD-10-PCS; 2019-03-29)
DX: L02.01 Cutaneous abscess of face (principal)
CPT/HCPCS: 36415; 70450-TC; 80053; 81003; 84703; 85025; 87804; 99282-25; J7030

== ENCOUNTER 2020-04-11 03:02 | Emergency (ER) | payer OTHER | END 2020-04-11 04:22 | disposition short-term general hospital (02) | LOC: JER 03:02 | DX: L02.01 Cutaneous abscess of face (principal) | CPT/HCPCS: 99285-25 ==

== ENCOUNTER 2020-06-23 14:07 | Emergency (ER) | payer OTHER ==
[2020-06-23 14:13] VITALS: BMI 17.7
[2020-06-23 15:51] LABS: BASO % 0.6 % (0-2.0); EOS % 0.5 % (0-4.5); HEMATOCRIT 34.6 % (32.4-45.2); HEMOGLOBIN 10.9 GM/dL (10.7-15.3); LYMPH % 13.3 % (8-40); MCH 24.8 pg (25.7-33.7); MCHC 31.6 g/dl (32.0-36.0); MEAN CELL VOLUME 78.6 fl (80-96); MEAN PLT VOLUME 9.2 fl (7.5-11.1); MONO % 8.3 % (3.8-10.2); NEUT % 77.3 % (42.8-82.8); PLATELET COUNT 481 K/MM3 (134-434); RBC 4.41 M/mm3 (3.60-5.2); RDW 18.2 % (11.6-15.6); WHITE BLOOD COUNT 9.3 K/mm3 (4.0-10.0)
[2020-06-23 16:25] LABS: EPI CELLS 13 /uL (0-25.1); HYALINE CASTS 2 /uL (0-3.1); PH,URINE 6.5 (5.0-8.0); URINE APPEARANCE CLEAR; URINE BACTERIA 128 /uL (0-1359); URINE BILIRUBIN NEGATIVE (NEGATIVE); URINE COLOR YELLOW; URINE GLUCOSE (UA) NEGATIVE (NEGATIVE); URINE KETONE TRACE (NEGATIVE); URINE LEUK ESTERASE NEGATIVE (NEGATIVE); URINE NITRITE NEGATIVE (NEGATIVE); URINE PROTEIN NEGATIVE (NEGATIVE); URINE RBC 27 /uL (0-23.9); URINE WBC 8 /uL (0-25.8)
[2020-06-23 17:02] LABS: CHLORIDE 107 mmol/L (98-107); SODIUM 137 mmol/L (136-145)
[2020-06-23 17:03] LABS: CALCIUM 9.3 mg/dL (8.5-10.1)
[2020-06-23 17:04] LABS: ALBUMIN 3.9 g/dl (3.4-5.0); ANION GAP 4 MMOL/L (8-16); BLOOD UREA NITROGEN 6.5 mg/dL (7-18); CO2 26 mmol/L (21-32); GLUCOSE,RANDOM 87 mg/dL (74-106)
[2020-06-23 17:07] LABS: CREATININE 0.6 mg/dL (0.55-1.3); SGOT/AST 12 U/L (15-37); SGPT/ALT 14 U/L (13-61)
[2020-06-23 17:09] LABS: BILIRUBIN,TOTAL 0.6 mg/dL (0.2-1); TOT PROT 7.7 g/dl (6.4-8.2)
[2020-06-23 17:10] LABS: ALK PHOS 60 U/L (45-117)
[2020-06-23 18:03] VITALS: BP 110/65; PULSE 80; TEMP 98
[2020-06-23 18:25] LABS: ALBUMIN 3.9 g/dl (3.4-5.0); BLOOD UREA NITROGEN 6.3 mg/dL (7-18)
[2020-06-23 18:28] LABS: CREATININE 0.6 mg/dL (0.55-1.3)
[2020-06-23 18:30] LABS: BILIRUBIN,TOTAL 0.4 mg/dL (0.2-1); TOT PROT 7.6 g/dl (6.4-8.2)
== END 2020-06-23 18:00 | disposition home or self-care (01) ==
LOC: JER 14:07
DX: O03.9 Complete or unspecified spontaneous abortion without complication (principal)
CPT/HCPCS: 36415; 76817-TC; 80053; 81003; 82550; 84484; 84702; 85025; 86850; 86900; 86901; 87086; 99284-25

== ENCOUNTER 2020-06-23 22:37 | Emergency (ER) | payer OTHER ==
[2020-06-23 22:44] VITALS: BP 104/67; PULSE 96; TEMP 98.8; BMI 17.7
== END 2020-06-23 23:58 | disposition home or self-care (01) ==
LOC: JER 22:37
DX: O03.4 Incomplete spontaneous abortion without complication (principal); Z3A.01 Less than 8 weeks gestation of pregnancy
CPT/HCPCS: 99283-25

== ENCOUNTER 2024-05-19 09:44 | Emergency (ER) | payer OTHER ==
[2024-05-19 09:58] VITALS: BP 101/63; RESP 18; BMI 18.1
[2024-05-19] MEDS ORDERED: guaiFENesin/D-METHORPHAN HB 10 ML UNIT-DOSE CUPS ONE (11:13)
[2024-05-19] MEDS ORDERED: ACETAMINOPHEN 500 MG TABLET (FP) ONE (11:14)
[2024-05-19] MEDS ORDERED: IBUPROFEN 400 MG TABLET (FP) PO ONE (11:14)
[2024-05-19] MEDS: ACETAMINOPHEN 500 MG TABLET (FP) PO ONE (11:27)
[2024-05-19] MEDS: guaiFENesin/D-METHORPHAN HB 10 ML UNIT-DOSE CUPS PO ONE (11:27)
[2024-05-19] MEDS: IBUPROFEN 400 MG TABLET (FP) PO ONE (11:27)
[2024-05-19 12:14] LABS: THROAT:GRP A STREP NOT DETECTED (NOTDETECTED)
[2024-05-19 12:42] VITALS: PULSE 107; TEMP 99.7
[2024-05-19 12:56] LABS: HIV INTERPRETATION NEGATIVE (NEGATIVE)
== END 2024-05-19 12:42 | disposition home or self-care (01) ==
LOC: JERFT 09:44
DX: J10.1 Influenza due to other identified influenza virus with other respiratory manifestations (principal); R05.9 Cough, unspecified; R22.1 Localized swelling, mass and lump, neck; R50.9 Fever, unspecified; Z20.822 Contact with and (suspected) exposure to COVID-19
CPT/HCPCS: 0241U-QW; 36415; 86803; 87389; 87651; 99283-25